=== PATIENT | female | born 1930 | race Caucasian/White ===

== ENCOUNTER 2016-10-10 13:38 | Observation (INO) | payer MEDICARE, BC, OTHER ==
[~2016-10-10] VITALS: Ht 154.9 cm; Wt 59.8 kg
[~2016-10-10 13:38] MED LIST: ASPIR-LOW81 MG PO; CALTRATE-600 W600 MG PO; CLOPIDOGREL PO; CRESTOR10 MG PO; CYTOTEC PO; INDOMETHACIN25 MG PO; LEVOTHYROXINE0.1 MG PO; NITROSTAT0.4 MG SL; TOPROL XL25 MG PO; VASOTEC 2.2.5 MG/TAB PO; ZETIA10 MG PO; [UNRECOGNIZED DRUG - OTHER] PO; lecithin PO; lutein PO; occuvite PO
[2016-10-10 13:58] LABS: BASO # 0.1 (0.0-0.2); BASO % 0.7 % (0.0-2.0); EOS # 0.2 (0.0-0.7); EOS % 1.9 % (0-4.0); GRAN # 6.4 (1.4-6.5); GRAN % 71.3 % (42.2-75.2); HEMOGLOBIN 13.4 g/dl (12.5-16.0); LYMPH # 1.9 (1.2-3.4); LYMPH % 20.6 % (20.0-51.0); MEAN CELL VOLUME 98 fl (80.0-100.0); MEAN CORPUSCULAR HEMOGLOBIN 32 pg (27.0-31.0); MEAN CORPUSCULAR HGB CONC 33 g/dl (33.0-37.0); MEAN PLATELET VOLUME 10.3 fl (7.4-10.4); MONO # 0.5 (0.1-0.6); MONO % 5.1 % (1.7-9.3); PLATELET COUNT 175 K/mm3 (130-400); RED BLOOD COUNT 4.19 M/mm3 (4.10-5.30)
[2016-10-10 14:14] LABS: CREATININE, serum 0.78 mg/dL (0.52-1.25); POTASSIUM 4.6 mmol/L (3.4-5.0)
[2016-10-10] MEDS ORDERED: PRILOSEC 20MG20 MG PO (15:22)
[2016-10-10] MEDS ORDERED: ISMO 20MG20 MG PO ×2 (15:26→15:30)
[2016-10-10] MEDS ORDERED: MONOKET20 MG PO (15:28)
[2016-10-10] MEDS ORDERED: COZAAR100 MG PO (15:36)
[2016-10-10] MEDS ORDERED: NORVASC 5MG5 MG/TAB PO (15:37)
[2016-10-10 17:22] VITALS: BP 151/55; PULSE 65; TEMP 97.3
[2016-10-10 19:16] VITALS: BP 154/60; PULSE 65; TEMP 98.1
[2016-10-10 20:14] LABS: INR 0.9 (0.8-3.0); PROTHROMBIN TIME 10.2 SECONDS (9.7-12.8)
[2016-10-10 23:57] VITALS: BP 164/60; PULSE 70; TEMP 97.7
[2016-10-11 04:50] VITALS: BP 146/51; PULSE 65; TEMP 98
[2016-10-11 07:38] VITALS: BP 152/56; PULSE 63; TEMP 98
[2016-10-11 10:17] LABS: C-REACTIVE PROTEIN < 0.5 mg/dL (0.0-0.9)
[2016-10-11 10:44] LABS: THYROID STIMULATING HORMONE 0.016 uIU/mL (0.465-4.680)
[2016-10-11 12:35] VITALS: BP 154/54; PULSE 61; TEMP 98.3
[2016-10-11 15:41] VITALS: BP 148/58; PULSE 106; TEMP 98.6
[2016-10-11 20:00] VITALS: BP 132/48; PULSE 96; TEMP 98.7
[2016-10-11 23:11] VITALS: BP 161/47; PULSE 52; TEMP 98.1
[2016-10-12 01:38] LABS: ANA SCREEN with REFLEX Negative (Negative)
[2016-10-12 04:07] VITALS: BP 178/75; PULSE 55; TEMP 98.3
[2016-10-12 07:42] VITALS: BP 152/61; PULSE 59; TEMP 98.1
[2016-10-12] MEDS ORDERED: LOPRESSOR 225 MG/TAB PO (10:30)
== END 2016-10-12 11:19 | disposition home or self-care (01) ==
LOC: COL.ER 13:38 → MEDICAL 15:01
PROVIDERS: Emergency Medicine
DX: F80.1 Expressive language disorder (principal); I25.2 Old myocardial infarction; I25.10 Atherosclerotic heart disease of native coronary artery without angina pectoris; I10 Essential (primary) hypertension; E03.9 Hypothyroidism, unspecified; E78.1 Pure hyperglyceridemia; E78.5 Hyperlipidemia, unspecified; M19.90 Unspecified osteoarthritis, unspecified site; G47.30 Sleep apnea, unspecified; Z86.73 Personal history of transient ischemic attack (TIA), and cerebral infarction without residual deficits; Z82.49 Family history of ischemic heart disease and other diseases of the circulatory system
CPT/HCPCS: A9585; G0378; G9168-GN; G9169-GN; J1644

== ENCOUNTER → 2017-07-09 | Outpatient (CLI) | payer MEDICARE, BC ==
[~2017-07-09] MED LIST changes: +COZAAR100 MG PO; +ISMO 20MG20 MG PO; +LOPRESSOR 225 MG/TAB PO; +MONOKET20 MG PO; +NORVASC 5MG5 MG/TAB PO; +PRILOSEC 20MG20 MG PO
== END ==
LOC: COL.LAB 09:01
DX: Z01.89 Encounter for other specified special examinations (principal)

== ENCOUNTER 2019-02-28 14:29 | Emergency (ER) | payer MEDICARE, BC, OTHER ==
[~2019-02-28] VITALS: Ht 157.5 cm; Wt 57.7 kg
[2019-02-28 14:47] VITALS: TEMP 99.2
[2019-02-28 15:26] LABS: ALBUMIN 4.6 gm/dL (3.5-5.0); BILIRUBIN,TOTAL 0.5 mg/dL (0.0-1.0); CALCIUM 9.2 mg/dL (8.4-10.2); CREATININE, serum 0.85 (0.52-1.25); POTASSIUM 4.2 mmol/L (3.4-5.0); TOTAL PROTEIN 7.3 gm/dL (6.4-8.2)
[2019-02-28 15:31] LABS: HEMATOCRIT 41.6 % (37.0-47.0); HEMOGLOBIN 13.9 g/dl (12.5-16.0); MEAN CELL VOLUME 98 fl (80.0-100.0); MEAN CORPUSCULAR HEMOGLOBIN 33 pg (27.0-31.0); MEAN CORPUSCULAR HGB CONC 33 g/dl (33.0-37.0); MEAN PLATELET VOLUME 10.7 fl (7.4-10.4); PLATELET COUNT 194 K/mm3 (130-400); RED BLOOD COUNT 4.25 M/mm3 (4.10-5.30); REDCELL DISTRIBUTION WIDTH-CV 13.4 % (11.5-14.5)
[2019-02-28 15:45] LABS: COLLECTION METHOD CLEAN CATCH
[2019-02-28 16:04] LABS: MUCOUS Present /lpf; PH 5 (5-8); SQUAMOUS EPITHELIAL 0-2 /hpf; URINE APPEARANCE Cloudy; URINE BACTERIA Rare /hpf; URINE BILIRUBIN Negative (NEGATIVE); URINE BLOOD Negative (NEGATIVE); URINE COLOR Yellow; URINE GLUCOSE Negative (NEGATIVE); URINE KETONE Trace (NEGATIVE); URINE LEUKOCYTE ESTERASE 1+ (NEGATIVE); URINE NITRATE Positive (NEGATIVE); URINE PROTEIN(semi-quant) 1+ (NEGATIVE)
[2019-02-28 16:13] LABS: LYMPHOCYTE 17 % (20.0-51.0); NEUTROPHILS 78 % (42.0-75.2)
[2019-02-28] MEDS ORDERED: OMNICEF 300MG300 MG PO (16:13)
[2019-02-28 16:14] LABS: ANISOCYTOSIS 1+; MICROCYTOSIS 1+; PLATELET ESTIMATE NORMAL (NORMAL)
[2019-02-28 16:55] VITALS: BP 169/75; PULSE 75
== END 2019-02-28 17:00 | disposition home or self-care (01) ==
LOC: COL.ER 14:29
PROVIDERS: Family Medicine
DX: N30.00 Acute cystitis without hematuria (principal); R53.83 Other fatigue; Z79.82 Long term (current) use of aspirin; Z79.02 Long term (current) use of antithrombotics/antiplatelets
CPT/HCPCS: J0696

== ENCOUNTER → 2019-03-06 | Outpatient (CLI) | payer MEDICARE, BC ==
[~2019-03-06] MED LIST changes: +OMNICEF 300MG300 MG PO
== END ==
LOC: COL.RAD 13:00
DX: R41.82 Altered mental status, unspecified (principal); R41.0 Disorientation, unspecified

== ENCOUNTER → 2019-03-21 | Outpatient (CLI) | payer MEDICARE, BC | LOC: MHCPAIN 10:11 | DX: M47.817 Spondylosis without myelopathy or radiculopathy, lumbosacral region (principal); M54.16 Radiculopathy, lumbar region | CPT/HCPCS: G0463 ==